=== PATIENT | female | born 1970 | race Caucasian/White ===

== ENCOUNTER 2017-06-11 09:35 | Day surgery (SDC) | payer OTHER ==
[~2017-06-11 09:35] MED LIST: ATOR10; LEVSOD50; NAPR550 PO
== END 2017-06-11 22:56 | disposition home or self-care (01) ==
LOC: RAD 09:35
PROC: BP38YZZ Magnetic Resonance Imaging (MRI) of Right Shoulder using Other Contrast (ICD-10-PCS; principal; 2017-06-11)
DX: M24.011 Loose body in right shoulder (principal); M75.111 Incomplete rotator cuff tear or rupture of right shoulder, not specified as traumatic
CPT/HCPCS: 23350; 73040; 73222; 77002; A9577; A9579; Q9967